=== PATIENT | female | born 1955 | race Caucasian/White ===

== ENCOUNTER 2017-03-03 18:18 | Emergency (ER) | payer SELFPAY ==
[~2017-03-03] VITALS: Ht 160 cm; Wt 46.4 kg
[2017-03-03 18:21] VITALS: BP 161/93; PULSE 76; RESP 16; O2SAT 100
[2017-03-03 20:31] LABS: BASOPHILS % (AUTO) 0.2 % (0-3); EOSINOPHILS % (AUTO) 1.9 % (0-5); MONOCYTES % (AUTO) 7.7 % (4-12); Mean Corpuscular Hemoglobin 31.8 pg (27.0-35.0); Mean Corpuscular Volume 95.1 fL (81-100); NEUTROPHILS % (AUTO) 69.8 % (40-74); Platelet Count 342 bil/L (150-400)
[2017-03-03] MEDS ORDERED: Ketorolac 15 mg/mL Inj IVPUSH ONE (22:30)
--- NOTE | 2017-03-03 22:31 | ED.REPORT ---
HPI-Syncope Date of Service Mar 03, 2017 ED Provider: Adriel Rehman MD Pt is a 61 year old female presenting to the ED after a syncopal episode at 1600 tonight. Associated symptoms include severe abdominal cramping, headache, and an laceration of her forehead. Denies any dizziness or any other symptoms at this time. She states that she had stomach cramping so she got up to walk into the bathroom, and all at once she felt very hot and "fainted", hitting her head on the cabinet. She was feeling fine all day today prior to the syncopal episode. Nursing Notes Stated Complaint: GROUND LEVEL FALL,HEAD INJURY Chief Complaint: General Complaint Nursing Notes Reviewed: Yes Allergies: Uncoded Allergies: PENICILLIN (Allergy, Unknown, UNKNOWN, 03/03/17) General Time Seen by Provider: 22:20 Chief Complaint Collapsed suddenly Hx Obtained From: Patient Arrived By: Walk-in Onset Occurred: 5 - 8 hours ago Symptom Duration: Since onset Progression Since Onset: Constant Location: : Head Quality: Painful Severity: Current: Moderate Severity: Maximum: Severe Recent Healthcare: No recent doctor visit, No recent hospitalization Similar Sx Previous: No Past Medical History Past Medical History denies Past Surgical History denies Smoking History Current Every Day Smoker Social History Alcohol Use: Denies alcohol use Drug Use: Denies drug use Ambulatory Status Independent Review of Systems Constitutional: Denies: Fever Respiratory: Denies: Wheezing GI: Reports: Abdominal pain, Denies: Vomiting Neurologic: Reports: Headache, Syncope, Denies: Dizziness Complete sys rev & neg: except as marked. Physical Exam Initial Vital Signs Vital Signs (First) Date Time Temp Pulse Resp B/P Pulse Ox O2 Delivery O2 Flow Rate FiO2 03/03/17 18:21 36.6 76 16 161/93 100 Room Air Initial VS: Reviewed, Vital signs abnormal ENT: Mucous membranes moist, Conjunctiva normal, No scleral icterus Neck: Supple, Non-tender, Full range of motion Abdomen / GI: Soft, Non-tender, No guarding, No rebound, No distention Upper Extremities: Vascular intact, Neuro intact, No swelling, No tenderness Skin: Warm, Dry, No cyanosis Psychiatric: Mood/affect normal, Behavior normal, Normal thought content General/Constitutional: Awake, Alert, No acute distress Respiratory / Chest: Breath sounds NL, Breath sounds = bilat, No respiratory distress, No rales, No rhonchi, No wheezing Cardiovascular: Heart rate NL, Regular rhythm, Heart sounds NL, No murmurs, Cap refill not delayed, Peripheral circulation NL Skin: No rash, Warm, Dry 2 cm laceration in right eyebrow Interpretation & Diagnostics Lab Results Interpretation Result Diagram: 03/03/17195603/03/171956 Test 03/03/17 19:57 03/03/17 23:00 White Blood Count 10.0th/mm3 (3.8-10.1) Red Blood Count 4.69mil/mm3 (3.90-5.20) Hemoglobin 14.9g/dL (12.0-15.6) Hematocrit 44.6% (35.0-46.0) Mean Corpuscular Volume 95.1fL (81-100) Mean Corpuscular Hemoglobin 31.8pg (27.0-35.0) Mean Corpuscular Hemoglobin Concent 33.4% (32.0-37.0) Red Cell Distribution Width 13.3% (12.3-15.4) Platelet Count 342bil/L (150-400) Neutrophils (%) (Auto) 69.8% (40-74) Lymphocytes (%) (Auto) 20.2% (14-46) Monocytes (%) (Auto) 7.7% (4-12) Eosinophils (%) (Auto) 1.9% (0-5) Basophils (%) (Auto) 0.2% (0-3) Sodium Level 138mEq/L (134-144) Potassium Level 4.6mEq/L (3.5-5.2) Chloride Level 102mEq/L (97-108) Carbon Dioxide Level 22mmol/L (18-29) Blood Urea Nitrogen 14mg/dL (8-27) Creatinine 0.40mg/dL (0.57-1.00) Estimat Glomerular Filtration Rate 233mL/min (>59) Glucose Level 85mg/dL (60-99) Calcium Level 9.9mg/dL (8.5-10.1) Total Bilirubin 0.2mg/dL (0.0-1.2) Aspartate Amino Transf (AST/SGOT) 17U/L (0-50) Alanine Aminotransferase (ALT/SGPT) 11U/L (0-32) Alkaline Phosphatase 71U/L (25-165) Total Protein 7.6g/dL (6.4-8.4) Albumin 4.4g/dL (3.4-5.0) Hold Patel Top Tube Received (Received) Hold Urine Received (Received) Lab values outside NL range: no clinical significance. ECG Interpretation ECG Interpretation: Left atrial enlargement. Probable LVH with secondary repol abnormality. Time: 21:37 Interpreted by: ED physician Normal ECG Interpretation: Normal rate (75), Normal sinus rhythm Procedures Laceration Management Time: 23:04 Procedure Performed by: ED physician Consent / Setup / Site Prep: Consent from patient, Time-out performed, Hand hygiene observed, Stand sterile technique Wound Length: 2 cm Local Anesthesia: Lidocaine w epi 1% Wound Preparation: Normal saline Irrigation: Copious # Sutures - Skin: 5 Post-Procedure / Complications: Antibiotic oint applied, Dressing applied, No complications, Condition improved, Tolerated procedure well, Patient stable Re-Eval/Medical Decision Med Decision/Clinical Course 61-year-old female who had a vasovagal type episode. At this time I found no dangerous cause for the syncope. The forehead wound was repaired without difficulty. She is being discharged home in improved addition. Re-Evaluation/Progress : Time of Eval: 23:04 Patient Status: Condition improved Re-Evaluation/Progress Note: Performed laceration management. Pt tolerated procedure well. Discussed plan for discharge. Pt understands and agrees with plan. Counseled Regarding: Diagnosis, Lab results, Need for follow-up, When/why to return to ED Discharge & Departure Impression: Primary Impression: Vasovagal syncope Additional Impressions: Eyebrow laceration Encounter type: initial encounter Laterality: right Qualified Code: S01.111A - Laceration without foreign body of right eyelid and periocular area, initial encounter Head injury Encounter type: initial encounter Qualified Code: S09.90XA - Unspecified injury of head, initial encounter Disposition: Home Discharge Condition All VS Reviewed: Yes Condition: Improved Patient Instructions: Head Injury (ED), Laceration (DC), Syncope (ED) Additional Instructions: ER labs and EKG are normal. There is no obvious reason for your syncope. Abdominal distress/cramping can cause it. Drink plenty of fluids. Do not drive for the next 12-24 hours. Get up with care and if you feel like to get a pass out, sitdown. Sutures need to be removed in 5 or 6 days. You can return to the emergency room or follow-up with your primary doctor for that. Contact me at [phone] or return to the emergency room if you have any of the warning signs seen on the head trauma instructions. Referrals: [facility] Scribe Attestation Portions of this note were transcribed by Nick Aldridge. I, Dr. Rehman personally performed the history, physical exam and medical decision-making; I reviewed and confirmed the accuracy of the information in the transcribed note. Signed by: Frankie Lopez, 03/03/2017 at 2329. copies to: [facility] Adriel Rehman MD Mar 03, 2017 22:31 NICK ALDRIDGE Mar 03, 2017 22:34
[2017-03-03] MEDS ORDERED: Lidocaine 1%/Epi 1:100,000 30 mL MDV ONE (23:01)
[2017-03-03 23:35] VITALS: BP_SYST 127; BP_SYST 142; BP_DIAS 75; BP_DIAS 87; PULSE 78; PULSE 86
[2017-03-03 23:42] VITALS: BP 127/87; PULSE 86; RESP 16; O2SAT 97
== END 2017-03-03 23:49 | disposition home or self-care (01) ==
LOC: SED 18:21
DX: S01.111A Laceration without foreign body of right eyelid and periocular area, initial encounter (principal); S09.90XA Unspecified injury of head, initial encounter; R55 Syncope and collapse; W22.8XXA Striking against or struck by other objects, initial encounter; Y93.01 Activity, walking, marching and hiking; Y92.009 Unspecified place in unspecified non-institutional (private) residence as the place of occurrence of the external cause; Y99.8 Other external cause status; F17.200 Nicotine dependence, unspecified, uncomplicated
CPT/HCPCS: 12011; 36415; 80053; 85025; 93005; 96374; 99284; J1885